=== PATIENT | female | born 1950 | race American Indian/Alaskan Native ===

== ENCOUNTER 2016-10-15 12:32 | Outpatient (CLI) | payer MEDICARE, OTHER | END 2016-10-15 12:33 | disposition home or self-care (01) | LOC: CARD 12:32 | DX: Z02.89 Encounter for other administrative examinations (principal); I10 Essential (primary) hypertension | CPT/HCPCS: 93005; 93010 ==

== ENCOUNTER 2017-01-05 12:45 | Outpatient (CLI) | payer MEDICARE, OTHER ==
--- NOTE | 2017-01-05 14:05 | Mammography Report ---
Bilateral digital screening mammogram with CAD. Findings: There is heterogeneous density of the fibroglandular tissue. In the right breast at the 12:00 position, there is a vague asymmetry which needs further evaluation. No architectural distortion or suspicious calcifications. Impression: Right Parenchymal asymmetry. BI-RADS code: 0. Recommendation: Spot compression images, 90 degree view, and ultrasound if needed.
== END 2017-01-05 12:46 | disposition home or self-care (01) ==
LOC: MAMMO 12:45
PROVIDERS: ATTEND Pediatrics
DX: Z12.31 Encounter for screening mammogram for malignant neoplasm of breast (principal)
CPT/HCPCS: 77067; G0202

== ENCOUNTER 2017-01-21 12:39 | Outpatient (CLI) | payer MEDICARE ==
[~2017-01-21 12:39] MED LIST: ATIVAN ONE
--- NOTE | 2017-01-21 13:18 | Mammography Report ---
Spot compression magnification of this finding density upper inner right breast: Findings: There is complete effacement noted of the density seen on the MLO view and CC view with spot compression and magnification views. No microcalcification or masses seen. Impression: Benign findings. Annual followup mammogram recommended. BI-RADS CATEGORY: 2 = Benign ACR BI-RADS MAMMOGRAPHIC CODES: 0 = Needs additional imaging evaluation; 1 = Negative; 2 = Benign; 3 = Probably benign; 4 = Suspicious; 5 = Malignant; 6 = Known biopsy-proven malignancy COMMENT: 1. Dense breast tissue, i.e., adenosis, fibrocystic changes, etc., may obscure an underlying neoplasm. 2. Approximately 10% of cancers are not detected with mammography. 3. A negative mammography report should not delay biopsy if a clinically suspicious mass is present. COMMENT: Patient follow-up letters are generated in [email or web address].
== END 2017-01-21 12:40 | disposition home or self-care (01) ==
LOC: MAMMO 12:39
DX: R92.8 Other abnormal and inconclusive findings on diagnostic imaging of breast (principal)
CPT/HCPCS: G0206-RT; J2060

== ENCOUNTER 2018-01-13 11:11 | Outpatient (CLI) | payer MEDICARE, OTHER ==
--- NOTE | 2018-01-13 14:44 | Mammography Report ---
BILATERAL DIGITAL SCREENING MAMMOGRAM with CAD : 01/13/18 11:11:00 CLINICAL: Routine screening. COMPARISON:01/05/17 FINDINGS: The breasts are heterogeneously dense, which may obscure small masses. No mass, architectural distortion or suspicious calcifications. IMPRESSION: No mammographic evidence of malignancy. BI-RADS CATEGORY: 2 -- Benign RECOMMENDATION: Routine mammographic screening in one year. COMMENT: Patient follow-up letters are generated by our [email or web address] application.
== END 2018-01-13 11:12 | disposition home or self-care (01) ==
LOC: MAMMO 11:11
DX: Z12.31 Encounter for screening mammogram for malignant neoplasm of breast (principal)
CPT/HCPCS: 77067

== ENCOUNTER 2019-01-02 13:54 | Emergency (ER) | payer MEDICARE, OTHER ==
[2019-01-02] MEDS ORDERED: NACL 0.9% IR ONE (14:01)
[2019-01-02] MEDS ORDERED: BOOSTRIX IM ONE ×2 (14:01→16:29)
[2019-01-02] MEDS ORDERED: TRIPLE ANTIBIOTIC TP ONE ×2 (14:01→16:08)
[2019-01-02] MEDS ORDERED: IBUPROFEN PO ONE (14:01)
[2019-01-02] MEDS ORDERED: XYLOCAINE 1% 20 mL INFILTRATI ONE (14:01)
--- NOTE | 2019-01-02 14:01 | Event Note ---
ED Screening Note ED Screening Note: lac lle need tdap This initial assessment/diagnostic orders/clinical plan/treatment(s) is/are subject to change based on patients health status, clinical progression and re- assessment by fellow clinical providers in the ED. Further treatment and workup at subsequent clinical providers discretion. Patient/guardian urged not to elope from the ED as their condition may be serious if not clinically assessed and managed. Initial orders include:
--- NOTE | 2019-01-02 16:16 | Emergency Department Report ---
- General Chief Complaint: Wound/Laceration Stated Complaint: LT LEG LAC Time Seen by Provider: 01/02/19 14:00 Source: patient Mode of arrival: Ambulatory Limitations: No Limitations - History of Present Illness Initial Comments: Patient is a 68-year-old [place] female who suffered a laceration prior to arrival. Patient's laceration is on her left leg anteriorly. Patient was d umping a mattress at adult and there is a large piece of glass from a fluorescent light bulb that cut into her leg. Patient was able to wrap it to try to control bleeding and she came to the emergency department. Patient is not up-to-date with her tetanus. Context: accidental Associated Symptoms: pain. denies: loss of feeling/numbness, suspect foreign body present, unable to move injured part - Related Data Previous Rx's Medication Instructions Recorded Last Taken Type Clindamycin [Clindamycin CAP] 300 mg PO Q8H #15 cap 01/02/19 Unknown Rx Ibuprofen [Motrin 600 MG tab] 600 mg PO Q8H PRN #20 tablet 01/02/19 Unknown Rx Allergies Allergy/AdvReac Type Severity Reaction Status Date / Time No Known Allergies Allergy Unverified 11/22/13 09:22 ED Review of Systems ROS: Stated complaint: LT LEG LAC Other details as noted in HPI Comment: All other systems reviewed and negative ED Past Medical Hx - Past Medical History Previous Medical History?: Yes Additional medical history: Fibromyalgia - Surgical History Past Surgical History?: Yes Additional Surgical History: TMJ. Right Rotator cuff - Medications Home Medications: Home Medications Medication Instructions Recorded Confirmed Last Taken Type Clindamycin [Clindamycin CAP] 300 mg PO Q8H #15 cap 01/02/19 Unknown Rx Ibuprofen [Motrin 600 MG tab] 600 mg PO Q8H PRN #20 tablet 01/02/19 Unknown Rx ED Physical Exam - General Limitations: No Limitations General appearance: alert, in no apparent distress - Head Head exam: Present: atraumatic, normocephalic - Eye Eye exam: Present: normal appearance - ENT ENT exam: Present: mucous membranes moist - Neck Neck exam: Present: normal inspection - Respiratory Respiratory exam: Absent: respiratory distress - Extremities Exam Extremities exam: Present: normal inspection, other (patient with a linear 3 cm laceration to the anterior left mota) - Back Exam Back exam: Present: normal inspection - Neurological Exam Neurological exam: Present: alert, oriented X3 - Psychiatric Psychiatric exam: Present: normal affect, normal mood - Skin Skin exam: Present: warm, dry, intact, normal color. Absent: rash - Laceration /Wound Repair Left Anterior Leg Wound Location: lower extremity Wound Length (cm): 3 Wound's Depth, Shape: linear Wound Explored: clean Irrigated w/ Saline (ccs): 100 Betadine Prep?: Yes Anesthesia: 1% Lidocaine Volume Anesthetic (ccs): 8 Wound Repaired With: sutures (Katie) Number of Sutures: 9 Layer Closure?: No Sterile Dressing Applied?: Yes Critical care attestation.: If time is entered above; I have spent that time in minutes in the direct care of this critically ill patient, excluding procedure time. ED Disposition Clinical Impression: Laceration Disposition: DC-01 TO HOME OR SELFCARE Is pt being admited?: No Does the pt Need Aspirin: No Condition: Stable Instructions: Suture Care (ED), Laceration (ED) Additional Instructions: Please follow-up with your primary care physician in 7-10 days Time of Disposition: 16:15
[2019-01-02 16:33] VITALS: BP 164/80
== END 2019-01-02 16:42 | disposition home or self-care (01) ==
LOC: ED 13:54
DX: S81.812A Laceration without foreign body, left lower leg, initial encounter (principal); M79.7 Fibromyalgia; Z79.1 Long term (current) use of non-steroidal anti-inflammatories (NSAID); W25.XXXA Contact with sharp glass, initial encounter; Y93.89 Activity, other specified; Y92.89 Other specified places as the place of occurrence of the external cause; Y99.8 Other external cause status
CPT/HCPCS: 90471; 90715; A6250

== ENCOUNTER 2019-04-20 13:05 | Outpatient (CLI) | payer MEDICARE, OTHER ==
--- NOTE | 2019-04-24 16:10 | Mammography Report ---
BONE DEXA CLINICAL: Family history of osteoporosis. Postmenopausal. TECHNIQUE: 2 site bone DEXA performed on an Hologic scanner. FINDINGS: The average BMD of the lumbar spine L1-L4 is 1.141g/cm squared with a T score of +0.9 and a Z score o f +2.0. The average total BMD of the left hip is 0.978 g/cm squared with a T score of +0.3and a Z score of +0 .7. IMPRESSION: 1. WHO classification: Normal with average fracture risk based on spine measurements. 2. WHO classification Normal with average fracture risk based on left hip measurements. RECOMMENDATION: Clinical correlation and routine screening. Definitions: BMD equal bone mineral density T score = BMD related to peak bone mass of young adult (Zack expressed an standard deviation) Z score = age-matched BMD expressed in SD World health organization (WHO) diagnostic criteria Normal T score greater than equal to 1 standard deviation Osteopenia T score between -1 and -2.4 standard deviation Osteoporosis T score -2.5 standard deviation or below. Note: BMD is not the only risk factor for fracture; also consider factors such as the patient's age, risk of falling, previous osteoporotic fracture, family history of osteoporotic fractures, current sm oker and low body weight. Z scores are not calculated if greater than 80 years of age. Signer Name: Lul King MD Signed: 04/24/2019 4:06 PM Workstation Name: [id number]
--- NOTE | 2019-04-24 16:12 | Mammography Report ---
DIGITAL SCREENING MAMMOGRAM WITH CAD, 04/20/2019 INDICATION: Routine screening mammography. TECHNIQUE: Digital bilateral 2D mammography was obtained in the craniocaudal and mediolateral obliq ue projections. This examination was interpreted with the benefit of Computer-Aided Detection analysi s. COMPARISON: 01/13/2018 FINDINGS: Breast Density: The breasts are heterogeneously dense, which may obscure small masses. There is no evidence of dominant mass, suspicious calcifications or architectural distortion in eithe r breast. IMPRESSION: No mammographic evidence of malignancy. Follow up recommendation: Routine yearly BI-RADS Category 2: Benign. A "normal" or negative report should not discourage follow up or biopsy of a clinically significant f inding. A written summary of these findings will be mailed to the patient. The patient will be entered into a mammography reporting system which will generate a reminder letter for the patient's next appointmen t at the appropriate interval. The [employer] recommends yearly mammograms starting at age 40 and continuing as l félix as a woman is in good health. Breast MRI is recommended for women with an approximate 20-25% or greater lifetime risk of breast cancer, including women with a strong family history of breast or ova eligio cancer or who have been treated for Hodgkin's disease. Signer Name: Lul King MD Signed: 04/24/2019 4:08 PM Workstation Name: [id number]
== END 2019-04-20 13:06 | disposition home or self-care (01) ==
LOC: MAMMO 13:05
PROVIDERS: ATTEND Obstetrics & Gynecology Gynecology
DX: Z12.31 Encounter for screening mammogram for malignant neoplasm of breast (principal); M85.80 Other specified disorders of bone density and structure, unspecified site; M81.0 Age-related osteoporosis without current pathological fracture
CPT/HCPCS: 77067; 77080